=== PATIENT | female | born 1955 | race Caucasian/White ===

== ENCOUNTER 2024-05-18 08:38 | Emergency (ER) | payer MEDICARE, BC, SELFPAY ==
[2024-05-18] VITALS (7 sets, daily range): BP systolic 143–192; BP diastolic 73–99; PULSE 65–76; RESP 12–18; TEMP 36.8; O2SAT 96–98; BMI 60.5
--- NOTE | 2024-05-18 08:57 | ED_ITS ---
HPI - Arrhythmia/Palpitations General Time Seen by Provider: 08:58 Date Seen: 05/18/24 Chief Complaint: Arrhythmia/Palpitations Stated Complaint: Irregular heartrate Time Seen by Provider: 05/18/24 08:57 Source: patient, RN notes reviewed and old records reviewed Mode of arrival: ambulatory Limitations: no limitations History of Present Illness HPI narrative: This 69-year-old female is coming into the ER with concern not feeling well this morning. She woke up around 7:30 a.m., had nausea, felt shaky, felt short of breath, some substernal lower chest discomfort. She felt an irregular heartbeat that felt different than her history of atrial fibrillation. She put her heart monitor on and it told her that she was not in atrial fibrillation but did not know the rhythm. She checked her blood sugar at home as she is diabetic, thought maybe she was low but her blood sugar was 147. Last night she felt fine. She has a history of type 2 diabetes, history of atrial fibrillation. She has had 3 ablation is a for her atrial fibrillation, is chronically anticoagulated with Eliquis. Patient is on propafenone as well. She admits that she has been having problems with burning pain in her substernal chest, has been taking Tums every night. Sometimes certain foods will make her feel better other times they have no bearing on her symptoms. Patient does not have any history of ischemic cardiac disease. MD complaint: irregular heart beat Arrhythmia history: atrial fibrillation, on anti-coagulants and history of ablation Related Data Home Medications ?Medication ?Instructions ?Recorded ?Confirmed apixaban 5 mg tablet (Eliquis) 5 mg PO BID 10/07/22 05/18/24 blood sugar diagnostic (Contour #10 ea 10/07/22 04/21/23 Next Test Strips) lisinopril 20 mg tablet 40 mg PO DAILY 10/07/22 05/18/24 magnesium citrate 100 mg tablet 500 mg PO QDAY 10/07/22 05/18/24 metoprolol tartrate 25 mg tablet 25 mg PO BID 10/07/22 05/18/24 pravastatin 40 mg tablet 40 mg PO . 10/07/22 05/18/24 propafenone 150 mg tablet 150 mg PO BID 10/07/22 05/18/24 insulin glargine U-300 conc 300 20 unit subcut 04/21/23 05/18/24 unit/mL (1.5 mL) subcutaneous pen (Toujeo SoloStar U-300 Insulin) dulaglutide 1.5 mg/0.5 mL 1.5 mg subcut 05/18/24 [facility] Previous Rx's ?Medication ?Instructions ?Recorded pantoprazole 40 mg tablet,delayed 40 mg PO DAILY #14 tabs 05/18/24 release (Protonix) Allergies Allergy/AdvReac Type Severity Reaction Status Date / Time glipizide Allergy Intermediate Abdominal Verified 05/18/24 08:46 Pain latex Allergy Intermediate Rash Verified 05/18/24 08:46 metformin Allergy Intermediate Abdominal Verified 05/18/24 08:46 Pain Penicillins Allergy Intermediate Hives Verified 05/18/24 08:46 Sulfa (Sulfonamide Allergy Intermediate Rash Verified 05/18/24 08:46 Antibiotics) Review of Systems Status of ROS: Reports: 6 or more systems reviewed and unremarkable except as noted in History and below [facility] Medical History (Updated 05/18/24 @ 11:25 by Fariha Art MD) Atrial fibrillation ?I48.91 - Unspecified atrial fibrillation (ICD-10) Cellulitis ?L03.90 - Cellulitis, unspecified (ICD-10) URI (upper respiratory infection) ?J06.9 - Acute upper respiratory infection, unspecified (ICD-10) Sore throat ?J02.9 - Acute pharyngitis, unspecified (ICD-10) Social History Smoking Status: Never smoker How often do you have a drink containing alcohol: never AUDIT-C Alcohol total score: 0 Non-prescribed substance use: denies use Exam Const: Vital Signs, click to edit/add: Vital Signs - 24 hr 05/18/24 08:46 05/18/24 09:03 05/18/24 09:31 Temperature 98.2 F Pulse Rate 68 Pulse Rate [Pulse Oximeter] 76 Respiratory Rate 18 14 Blood Pressure 158/99 H Blood Pressure [Le ft Forearm] 192/91 H Pulse Oximetry 97 98 98 Oxygen Delivery Me thod Room Air 05/18/24 10:02 05/18/24 10:31 Temperature Pulse Rate 65 65 Pulse Rate [Pulse Oximeter] Respiratory Rate 16 12 Blood Pressure 147/84 H 149/73 H Blood Pressure [Le ft Forearm] Pulse Oximetry 97 96 Oxygen Delivery Me thod Cleans a 63-year-old female that is alert, interactive, no apparent distress, seen in exam room 8. She is able to speak in complete sentences, speech is normal, no hoarseness. Pupils equal round, sclera clear. Symmetrical facial function. Neck thick but no adenopathy or masses noted. Lungs are clear, good air entry, no wheezing crackles. CV regular, no murmur, normal S1-S2, no S3-S4. Do see occasional PVC on the quality assurance monitor body while I am talking to her. Abdomen is obese but soft, nontender, no organomegaly or masses noted but may be difficult due to body habitus. Lower extremities are thickened, have venous stasis pigmentary changes but no erythema or warmth. Documenting provider has reviewed patient's vital signs: yes Course Course ED Course: This patient is anticoagulated with Eliquis making thromboembolic disease like pulmonary emboli much less likely. Will confirm normal D-dimer. Do see PVCs both on her EKG and quality assurance monitor body, could be the irregular heartbeat that she is feeling is the PVCs. There certainly is no evidence of recurrent atrial fibrillation at this time. Do need to rule out ischemic cardiac disease, will be getting troponin. We are seen her about an hour and a half after onset of symptoms. Aspirin is not going to be given at this time unless a point of care troponin does come back elevated given that she is on Eliquis. It is possible that she does have GI pathology but need to rule out other more concerning and potentially life-threatening issues 1st. Will look at a portable chest x-ray as well. Full complement of appropriate labs will be obtained. Reevaluation(s) Time of Reevaluation #1: 11:16 Reevaluation #1: Reviewed normal cardiac enzymes, EKGs not showing any concerning change for active ischemia or infarct. She notes that her heartburn symptoms are actually worsening since she has been here. She has been having worsening heartburn for a while now. She states she has tried omeprazole Nexium in the past, did not feel like they helped. Did review with her that she probably should get scheduled for an EGD through her primary care provider given her ongoing symptoms. She states she has a hiatal hernia. Nonetheless, she probably should have EGD just to ensure no underlying pathology. This does not need to happen emergently today and can be scheduled through her primary. Will give her a 2 week course of Protonix to try to see if this medicine may help her. As far as the PVCs, this is likely a benign finding but if she starts having more symptoms, can talk to her hand frame surgical elastic knitter. She is on low-dose metoprolol, this could be escalated a bit higher. She is not feeling short of breath, does have chronic edema of her legs and had tried a diuretic in the past without much benefit. Do not think that this patient is in active congestive heart failure with her current symptoms. Will have her follow-up and be re-evaluated with her primary. Vital Signs Vital signs: Initial Vital Signs Temperature 98.2 F 05/18/24 08:46 Temperature Source Temporal Artery Scan 05/18/24 08:46 Pulse Rate 76 05/18/24 08:46 Respiratory Rate 18 05/18/24 08:46 Blood Pressure 192/91 H 05/18/24 08:46 Blood Pressure Mean 124 H 05/18/24 08:46 Blood Pressure Position Semi-Fowlers 05/18/24 08:46 Pulse Oximetry 97 05/18/24 08:46 Oxygen Delivery Method Room Air 05/18/24 08:46 Vital Signs Temperature 98.2 F 05/18/24 08:46 Pulse Rate 76 05/18/24 08:46 Respiratory Rate 18 05/18/24 08:46 Blood Pressure 192/91 H 05/18/24 08:46 Pulse Oximetry 97 05/18/24 08:46 Oxygen Delivery Method Room Air 05/18/24 08:46 Temperature 98.2 F 05/18/24 08:46 Pulse Rate 65 05/18/24 10:31 Respiratory Rate 12 05/18/24 10:31 Blood Pressure 149/73 H 05/18/24 10:31 Pulse Oximetry 96 05/18/24 10:31 Oxygen Delivery Method Room Air 05/18/24 08:46 MDM - Arrhythmia/Palpitations Lab Data Attestation: I reviewed the patient's lab results. Labs: Lab Results 05/18/24 05/18/24 Range/Units 09:15 10:33 WBC 5.46 (4.50-11.00) K/uL RBC 4.64 (4.00-5.20) m/uL Hgb 13.4 (12.0-16.0) gm/dL Hct 41.8 (33.0-51.0) % MCV 90 (80-100) fL MCH 29 (26-34) pg MCHC 32 (32-36) gm/dL RDW Coeff of Shruthi 13.0 (11.5-15.5) % Plt Count 198 (140-440) K/uL Neut % (Auto) 67.0 (42.0-72.0) % Lymph % (Auto) 21.8 (20-44) % [place] % (Auto) 7.3 (0.0-11.0) % Eos % (Auto) 3.5 (0.0-7.0) % Baso % (Auto) 0.2 (0.0-3.0) % Neut # (Auto) 3.66 (1.7-7.0) K/uL Lymph # (Auto) 1.19 (0.90-2.90) K/uL [place] # (Auto) 0.40 (0.00-0.90) K/UL Eos # (Auto) 0.19 (0.00-0.50) K/uL Baso # (Auto) 0.01 (0.00-0.30) K/uL Abs Immat Gran (auto) 0.01 (0.00-0.30) K/uL Imm/Tot Granulo (auto) 0.2 % D-Dimer Quant (PE/DVT) 0.43 (0.00-0.50) ug/ml VBG pH 7.375 (7.32-7.43) VBG pCO2 50 (40-50) mmHG VBG pO2 36.0 (25-47) mmHG VBG HCO3 29 H (21-28) mmol/L Sodium 136 (135-149) mmol/L Potassium 4.2 (3.6-5.1) mmol/L Chloride 103 (96-114) mmol/L Carbon Dioxide 27 (20-32) mmol/L Anion Gap 6 L (7-15) mEq/L BUN 21 (7-30) mg/dL Creatinine 0.8 (0.5-1.5) mg/dL Estimated Creat Clear 56.27 Estimated GFR 80 ml/min Glucose 165 H (60-115) mg/dL Lactate 1.4 (0.5-1.9) mmol/L Calcium 9.7 (8.4-10.6) mg/dL Magnesium 1.7 (1.5-2.6) mg/dL Total Bilirubin 0.8 (0.1-1.5) mg/dL AST 27 (12-35) U/L ALT 24 (4-35) U/L Alkaline Phosphatase 70 (40-150) U/L Troponin I < 0.01 L (0.01-0.04) ng/mL C-Reactive Protein 1.6 H (0.5-1.0) mg/dL NT-Pro-B Natriuret Pep 325 pg/mL Total Protein 7.7 (6.0-8.3) g/dL Albumin 4.3 (3.3-5.0) g/dL POC Troponin I 0.00 L 0.01 (0.01-0.04) ng/ml Imaging Data Chest x-ray: Attestation: I have reviewed the pertinent imaging results. Radiologist's impression: Patient: [facility] Facility:?[facility] Patient ID:?[id number] Site Patient ID:?[id number]. Site :?[id number] Study:?XRay-Chest PORTABLE 1 VIEW-05/18/2024 9:44:36 AM Ordering Physician:Conrad Fried Final Report: INDICATION: Chest pain. Cardiac arrhythmia. COMPARISON: 01/11/2018 TECHNIQUE: 1 view. FINDINGS: Medical Devices: None. Lung Volumes: Adequate inspiration. No significant atelectasis. Lungs: Upper lobe pulmonary venous diversion and diffuse bilateral reticular opacities consistent with interstitial edema. Pleura and Pleural spaces: No significant pleural effusion. No pneumothorax. Mediastinum: Stable cardiomediastinal silhouette. AP technique exaggerates the transverse dimension of the cardiac silhouette. Cardiomegaly is not excluded. Bony Thorax and Soft Tissues: No significant incidental findings. IMPRESSION: Findings consistent with mild congestive heart failure. Dictated by Samuel Porras MD @ 05/18/2024 9:52:20 AM (Electronic Signature) ECG Data Attestation: I personally reviewed and interpreted this ECG as follows: (Sinus rhythm with first-degree AV block, 78 beats per minute. PVCs noted. Poor R- wave progression anterior precordial leads, left anterior fascicular block and incomplete right bundle branch block.) ECG interpretation date: 05/18/24 ECG interpretation time: 09:19 Prior ECG tracings: not available for review Interpretation: 10:32 a.m. EKG was sinus rhythm with first-degree AV block. Poor R-wave progression anterior precordial leads, no significant change. Discharge Plan Discharge Clinical Impression: Chest pain due to GERD, Premature ventricular contractions (PVCs) (VPCs) Patient Disposition: Home, Self-Care Condition: Stable Instructions: GERD (Gastroesophageal Reflux Disease) (ED), Premature Ventricular Contractions (ED) Additional Instructions: Please schedule follow-up with her primary care provider within the next 1-2 weeks. Need to discuss having a screening EGD done given your ongoing heartburn symptoms. Try the Protonix and see if it is helping at all, may need longer than 2 weeks to completely evaluate this, can get more from your primary care provider. If your noticing ongoing issues with irregular heartbeat, your primary care provider can get you a quality assurance monitor body, recommend ZIO patch or similar monitor. Referral to your hand frame surgical elastic knitter can always be considered as well. Activity Level: Activity as Tolerated Prescriptions: New pantoprazole [Protonix] 40 mg tablet,delayed release (DR/EC) 40 mg PO DAILY Qty: 14 0RF No Action metoprolol tartrate 25 mg tablet 25 mg PO BID Patient Comments: TAKE ONE TABLET BY MOUTH TWICE DAILY lisinopril 20 mg tablet 40 mg PO DAILY Patient Comments: TAKE ONE TABLET BY MOUTH ONE TIME DAILY (DME) Contour Next Test Strips Strip See Rx Instructions .ROUTE .MEDSUPPLY Qty: 10 Patient Comments: USE TO TEST BLOOD SUGAR ONCE DAILY. Rx Instructions: As directed pravastatin 40 mg tablet 40 mg PO .hs Patient Comments: TAKE ONE TABLET BY MOUTH ONE TIME DAILY AT BEDTIME propafenone 150 mg tablet 150 mg PO BID Patient Comments: Take 1 Tablet (150 mg) by mouth twice daily 12 hours apart. Eliquis 5 mg tablet 5 mg PO BID Patient Comments: TAKE ONE TABLET BY MOUTH TWICE DAILY magnesium citrate 100 mg tablet 500 mg PO QDAY Hold Instructions: patient not taking at present insulin glargine U-300 conc [Toujeo SoloStar U-300 Insulin] 300 unit/mL (1.5 mL) insulin pen 20 unit subcut HS Trulicity 1.5 mg/0.5 mL pen injector 1.5 mg subcut Follow Up/Referrals: Ruthy Stewart [Referring] - Stand Alone Forms: MyHealth Info Instructions
--- NOTE | 2024-05-18 09:03 | CRLHL7_ITS ---
For Patients: As a result of the Century Cures Act, medical imaging exams and procedure reports are released immediately into your electronic medical record. You may view this report before your referring provider. If you have questions, please contact your health care provider. INDICATION: Chest pain. Cardiac arrhythmia. COMPARISON: 01/11/2018 TECHNIQUE: 1 view. FINDINGS: Medical Devices: None. Lung Volumes: Adequate inspiration. No significant atelectasis. Lungs: Upper lobe pulmonary venous diversion and diffuse bilateral reticular opacities consistent with interstitial edema. Pleura and Pleural spaces: No significant pleural effusion. No pneumothorax. Mediastinum: Stable cardiomediastinal silhouette. AP technique exaggerates the transverse dimension of the cardiac silhouette. Cardiomegaly is not excluded. Bony Thorax and Soft Tissues: No significant incidental findings. IMPRESSION: Findings consistent with mild congestive heart failure. Dictated by Samuel Porras MD @ 05/18/2024 9:52:20 AM (Electronically Signed)
[2024-05-18 09:26] LABS: Basophils Absolute Auto 0.01 K/uL (0.00-0.30); Basophils Percent Auto 0.2 % (0.0-3.0); Eosinophils Absolute Auto 0.19 K/uL (0.00-0.50); Eosinophils Percent Auto 3.5 % (0.0-7.0); Hematocrit 41.8 % (33.0-51.0); Hemoglobin* 13.4 gm/dL (12.0-16.0); Immature Granulocytes Abs Auto 0.01 K/uL (0.00-0.30); Immature Granulocytes Pct Auto 0.2 %; Lymphocytes Absolute Auto 1.19 K/uL (0.90-2.90); Lymphocytes Percent Auto 21.8 % (20-44); Mean Corpuscular HGB Conc 32 gm/dL (32-36); Mean Corpuscular Hemoglobin 29 pg (26-34); Mean Corpuscular Volume 90 fL (80-100); Monocytes Percent Auto 7.3 % (0.0-11.0); Neutrophils Absolute Auto 3.66 K/uL (1.7-7.0); Platelet Count* 198 K/uL (140-440); Red Blood Count 4.64 m/uL (4.00-5.20); White Blood Count* 5.46 K/uL (4.50-11.00)
[2024-05-18 09:28] LABS: HCO3 VBG 29 mmol/L (21-28); Lactate* 1.4 mmol/L (0.5-1.9); PCO2 VBG 50 mmHG (40-50); pH VBG 7.375 (7.32-7.43)
[2024-05-18 09:31] LABS: Slide Review Reflex No
[2024-05-18 09:43] LABS: Albumin* 4.3 g/dL (3.3-5.0); Chloride* 103 mmol/L (96-114); Sodium* 136 mmol/L (135-149)
[2024-05-18 09:44] LABS: Potassium* 4.2 mmol/L (3.6-5.1)
[2024-05-18 09:47] LABS: Alanine Aminotransferase* 24 U/L (4-35); Alkaline Phosphatase* 70 U/L (40-150); Anion Gap 6 mEq/L (7-15); Aspartate Amino Transferase* 27 U/L (12-35); Bilirubin Total* 0.8 mg/dL (0.1-1.5); Blood Urea Nitrogen* 21 mg/dL (7-30); Carbon Dioxide* 27 mmol/L (20-32); Creatinine* 0.8 mg/dL (0.5-1.5); Est. Creatinine Clearance* 56.27; Estimated Glomerular Filt Rate 80 ml/min; Glucose* 165 mg/dL (60-115); Total Protein* 7.7 g/dL (6.0-8.3)
[2024-05-18 09:48] LABS: Calcium* 9.7 mg/dL (8.4-10.6); D Dimer Quantitative* 0.43 ug/ml (0.00-0.50); Magnesium* 1.7 mg/dL (1.5-2.6)
[2024-05-18 09:50] LABS: C Reactive Protein* 1.6 mg/dL (0.5-1.0)
[2024-05-18 10:28] LABS: NT Pro B Type NatriureticPept* 325 pg/mL; Troponin I* < 0.01 ng/mL (0.01-0.04)
[2024-05-18 10:52] LABS: Troponin, Point-of-Care* 0.01 ng/ml (0.01-0.04)
== END 2024-05-18 11:43 | disposition home or self-care (01) ==
PROVIDERS: Emergency Provider Family Medicine; PCP Physician Assistant
DX: K21.9 Gastro-esophageal reflux disease without esophagitis (principal); R07.89 Other chest pain; I49.3 Ventricular premature depolarization
CPT/HCPCS: 36415; 71045; 80053; 82803; 83605; 83735; 83880; 84484; 85025; 85379; 86140; 93005; 94761; 99284; 99285

== ENCOUNTER 2025-01-18 14:03 | Emergency (ER) | payer MEDICARE, BC, SELFPAY ==
[2025-01-18] VITALS (8 sets, daily range): BP systolic 143–179; BP diastolic 75–79; PULSE 68–76; RESP 13–22; TEMP 36.8; O2SAT 96–99; BMI 56.1
--- OUTSIDE RECORDS SUMMARY | 2025-01-18 14:06 | XMS_ITS | Data Portability ---
Author Organization [place] [facility], [employer] - [employer] [facility] Address [address] [place] [address] Assessment Encounter Date Assessment Date Assessment LastModified by Organization Details LastModified Time 10/24/2024 10/24/2024 ASSESSMENT: Patient is a good candidate for conservative care and the prognosis is for a favorable outcome that achieves the patients' goals. We discussed etiology, activity modifications, home care, and other treatment options. Initially, it is recommended that the patient receive in-office treatment 1 times per week for 8 weeks at which time a re-evaluation will be performed to determine an appropriate change in plan. Initially, treatment will focus on joint manipulation to restore range of motion and reduce pain. We will slowly progress to therapeutic exercises and activities to improve function, strength, and stability may also be used as warranted. If the patient is not responding as expected, more invasive procedures will be discussed along with a referral. All considerations above were discussed with the patient and questions answered to satisfaction. If the patient should have any additional questions, or should the condition evolve or worsen, the patient should not hesitate to contact our office. [email or web address] Not available 10/25/2024 16:41:44 Plan of Treatment Reminders Order Date Submit Date Provider Last Modified By Organization Details Last Modified Time Details Appointments None record ed. Lab None record ed. Referral None record ed. Procedures None record ed. Surgeries None record ed. Imaging None record ed. Medication Orders None record ed. Patient TargetsNo targets recorded. Patient InstructionsNo instructions recorded. Reason for Referral None Reported. Problems Name Problem SNOMED Code Status Onset Date Resolution Date Notes Provider Name and Address Organization Details Recorded Time Somatic dysfunction of pelvic region 684701247 Active 2024 Roland Jeong DC [address] [facility] [address], [place], [address], [place] [facility] 10:36:51 Neck pain 10152505 Active 2024 Tani Rubalcava DC [address], [place], [address], [place] [facility] 5 16:41:45 Cervical segmental dysfunction 465454417 Active 2024 Tani Rubalcava DC [address] [facility] [address], [place], [address], [place] [facility] 16:41:45 Lumbar segmental dysfunction 676796810 Active 2024 Tani Rubalcava DC [address] [address] [facility] [address], [place], [address], [place] [facility] 16:41:45 Thoracic segmental dysfunction 331477299 Active 2024 Tani Rubalcava DC [address] [facility] [address], [place], [address], [place] [facility] 16:41:45 Lesion of lumbar spine 493195260 Active 2024 Tani Rubalcava DC [address] [facility] [address], [place], [address], [place] [facility] 16:41:45 Problem Notes None recorded. Procedures Surgical History Date Name Laterality Status Provider Name and Address Organization Details Recorded Time 5 45208: Spinal manipulation , 3 to 4 regions completed Roland Jeong DC [address] [facility] [address], [place], [address], [place] [facility] 12/20/2024 16:58:33 5 [address]: Spinal manipulation , 3 to 4 regions completed Roland Jeong DC [address] [facility] [address], [place], [address], [place] [facility] 12/18/2024 10:36:34 5 [address]: Spinal manipulation , 3 to 4 regions completed [place], [place] [address], [place], [address], [facility] 10/25/2024 16:42:10 Imaging Results None recorded. Procedure Notes None recorded. Medical Equipment None Reported. Medications Name Sig Start Date Stop Date Status Note LastModified by Organization Details LastModified Time poct strep a positive Administere d by pharmacist* active Not Available Not Available Not Available propafenone 150 mg tablet TAKE 1 TABLET BY MOUTH EVERY 12 HOURS active Not Available Not Available No t Available pravastatin 40 mg tablet TAKE ONE TABLET BY MOUTH ONE TIME DAILY AT BEDTIME* active Not Available Not Available Not Available sucralfate 1 gram tablet TAKE ONE TABLET BY MOUTH THREE TIMES DAILY BEFORE MEALS FOR 14 DAYS* active Not Available Not Available No t Available amlodipine 5 mg tablet TAKE ONE TABLET BY MOUTH ONE TIME DAILY* active Not Available Not Available Not Available terbinafine HCl 250 mg tablet Take 1 Tablet (250 mg) by mouth once daily.* active Not Available Not Available No t Available cephalexin 500 mg capsule TAKE TWO CAPSULES BY MOUTH TWICE DAILY* active Not Available Not Available No t Available pantoprazole 40 mg tablet,delay ed release TAKE ONE TABLET BY MOUTH ONE TIME DAILY* active Not Available Not Available Not Available lisinopril 40 mg tablet TAKE ONE TABLET BY MOUTH ONE TIME DAILY* active Not Available Not Available Not Available metoprolol tartrate 25 mg tablet TAKE ONE TABLET BY MOUTH TWICE DAILY* active Not Available Not Available No t Available Contour Next Test Strips USE TO TEST BLOOD SUGAR ONCE DAILY.* active Not Available Not Available No t Available Eliquis 5 mg tablet TAKE ONE TABLET BY MOUTH TWICE DAILY* active Not Available Not Available No t Available Trulicity 1.5 mg/0.5 mL subcutaneous pen injector Inject 1.5 mg by subcutaneou s route once weekly.* active Not Available Not Available No t Available Trulicity 0.75 mg/0.5 mL subcutaneous pen injector Inject 0.75 mg subcutaneou sly once weekly.* active Not Available Not Available No t Available insulin glargine (U-300) conc. 300 unit/mL (1.5 mL) subcutaneous pen Inject 31 units subcutaneou s before bedtime. Increase by 2 units every 4 days until fasting blood sugars are 100-120. Max units of 60 daily.* active Not Available Not Available No t Available BD Aparna 2nd Gen Pen Needle 32 gauge x 5/32 use to administer insulin at home.* active Not Available Not Available No t Available Trulicity 3 mg/0.5 mL subcutaneous pen injector Inject 3 mg subcutaneou s once weekly.* active Not Available Not Available No t Available Mounjaro 7.5 mg/0.5 mL subcutaneous pen injector active Not Available Not Available Not Available Mounjaro 5 mg/0.5 mL subcutaneous pen injector Inject 5 mg BY subcutaneou s ROUTE once weekly.* active Not Available Not Available No t Available Mounjaro 2.5 mg/0.5 mL subcutaneous pen injector Inject 2.5 mg BY subcutaneou s ROUTE once weekly.* active Not Available Not Available No t Available Vitals None Recorded Social History None recorded. Functional Status None recorded. Mental Status None recorded. Family History Nothing Reported. Medical History No medical history recorded. Gynecological HistoryNo gynecological history recorded. Obstetrics History GPAL:G 0 P 0 0 0 0 Past Encounters Encounter ID Performer Location Encounter Start Date Encounter Closed Date Diagnosis/Indication Diagnosis SNOMED-CT Code Diagnosis ICD10 Code Diagnosis Note [id number] Tani Rubalcava DC [facility] [address] [place] [address] 10/24/2024 11:29:42 10/25/2024 16:47:22 Cervical segmental dysfunction 137117417 M99.01 Neck pain 28754276 M54.2 Thoracic s egmental dysfunction 756257779 M99.02 Lumbar seg mental dysfunction 984409726 M99.03 Lesion of lumbar spine 374110850 M99.01 [id number] Roland Jeong DC [facility] [address] [place] [address] 12/18/2024 09:57:38 12/18/2024 10:48:22 Cervical segmental dysfunction 804988476 M99.01 Neck pain 69161940 M54.2 Thoracic s egmental dysfunction 102498828 M99.02 Somatic dy sfunction of pelvic region 436769667 M99.05 [id number] Roland Jeong DC [facility] [address] [place] [address] 12/20/2024 15:46:37 12/20/2024 17:31:38 Cervical segmental dysfunction 671360462 M99.01 Thoracic s egmental dysfunction 945982406 M99.02 Neck pain 74977950 M54.2 Somatic dy sfunction of pelvic region 461058375 M99.05 Health Concerns Section Related Observation LastModified by Organization Detai ls LastModified Time None Recorded Concern Status LastModified by Organization Details LastModified Time None Recorded Advance Directives Directive None Recorded Payers Encounter Date Sequence Insurance Name Policy Number Policy Serrano Covered Member ID Serrano Member ID Guarantor Name 10/24/2024 1 [place] [employer] [facility] Kendal Amber Mertesdorf [id number] Kendal Mertesdorf 10/24/2024 2 [place] [id number] Kendal Amber Mertesdorf [id number] Kendal Mertesdorf 12/18/2024 1 [place] [employer] [facility] Kendal M Mertesdorf [id number] Kendal Mertes[place]f 12/18/2024 2 [place] [id number] Kendal M Mertesdorf [id number] Kendal Mertes[place]f 12/20/2024 1 [place] [employer] [facility] Kendal M Mertes[place]f [id number] 33 Kendal Mertes[place]f 12/20/2024 2 [place] [id number] Kendal Amber M[place]f [id number] [facility] Notes Date Note Type Note Provider Name and Address Organization Details Recorded Time 10/24/2024 text/html HPI - Cervical SpineReported bypatient.Location: left Quality:aching Severity:moderate Duration:2 weeks Timing:gradual Alleviating Factors:ice Aggravating Factors:sitting Associated Symptoms:no numbness/tingling Tani Rubalcava DC [address], [place], [address], [facility] 10/25/2024 16:42:41 12/18/2024 text/html HPI - Cervical SpineReported bypatient.Location: left Quality:aching Severity:moderate Duration:2 weeks Timing:gradual Alleviating Factors:ice Aggravating Factors:sitting Associated Symptoms:no numbness/tingling Roland Billy Jeong DC [address], [place], [address], [facility] 12/18/2024 10:37:07 12/20/2024 text/html HPI - Cervical SpineReported bypatient.Location: left Quality:aching Severity:moderate Duration:2 weeks Timing:gradual Alleviating Factors:ice Aggravating Factors:sitting Associated Symptoms:no numbness/tingling Roland Jeong DC [address], [place], [address], [facility] 12/20/2024 17:14:24 OBGyn Episode No OBEpisode recorded.
--- OUTSIDE RECORDS SUMMARY | 2025-01-18 14:07 | XMS_ITS | Clinical Summary ---
Author Organization [facility] Address [address] [place] [address] Care Team Providers Care Biometrics Head Name Role Phone Vianca Thurman Primary Care Provider [phone]- [phone] Laurie Alicea Unavailable Prasad Castro MD Unavailable [phone] Allergies Active Allergy Reactions Criticality Noted Date Comments Adhesive Rash Medium 04/11/2014 Latex Itching,Edema High 08/31/2009 Metformin Diarrhea High 09/19/2009 Penicillins Rash Medium 05/10/2016 sunburn appearance on lower extremities Sulfa (Sulfonamide Antibiotics) Rash High 08/18/2023 Blood sugar dropped Medications CALCIUM CARBONATE (TUMS 500 ORAL) Take by mouth once daily if needed. Active blood-glucose meterIndications:Diabet es mellitus without complication (HC) Dispense meter, test strips, lancets covered by pt ins. E11.9 NIDDM type II - Test 1 time/day 1 Device 018 Active lancetsIndications:Diab etes mellitus without complication (HC) Please give what is covered by insurance! Test 1 times per day. 100 Each 023 Active Microlet LancetIndications:Diabe radha mellitus without complication (HC) Dispense item covered by pt ins. E11.9 NIDDM type II - Test 1 time/day 100 Each 023 Active CPAPIndications:CARLOS (obstructive sleep apnea) resmed CPAP machine for home use at pressure 9 cmw, CPAP mask- mask of choice, fit to comfort one per 3 months 1 Each 024 Active apixaban (Eliquis) 5 mg tabletIndications:Persi stent atrial fibrillation (HC) Take 1 Tablet (5 mg) by mouth two times daily. 180 Tablet 3 024 Active metoprolol tartrate (LOPRESSOR) 25 mg tabletIndications:H/O radiofrequency ablation for complex left atrial arrhythmia Take 1 Tablet (25 mg) by mouth two times daily. 180 Tablet 3 024 Active propafenone (RYTHMOL) 150 mg tabletIndications:Persi stent atrial fibrillation (HC) Take 1 Tablet (150 mg) by mouth every 12 hours. 180 Tablet 3 024 Active insulin glargine U-300 (Toujeo SoloStar U-300 Insulin) 300 unit/mL (1.5 mL) penIndications:type 2 diabetes mellitus Inject 20 units subcutaneous before bedtime. 6 mL 1 024 Active lisinopriL (PRINIVIL; ZESTRIL) 40 mg tabletIndications:Essen tial hypertension Take 1 Tablet (40 mg) by mouth once daily. 90 Tablet 3 024 Active pravastatin (PRAVACHOL) 40 mg tabletIndications:Pure hypercholesterolemia Take 1 Tablet (40 mg) by mouth at bedtime. 90 Tablet 3 024 Active amLODIPine (Norvasc) 5 mg tabletIndications:Essen tial hypertension Take 1 Tablet (5 mg) by mouth once daily. 90 Tablet 3 024 Active Walker - 4 wheelsIndications:At high risk for falls,Unsteady gait For home use. Length of need: 99 Bariatric walker 1 Each 024 Active tirzepatide (Mounjaro) 7.5 mg/0.5 mL penIndications:type 2 diabetes mellitus Inject 7.5 mg subcutaneous once weekly. 6 mL 3 09/25/20 24 2:16 PM SCOURING PADS SUPERVISOR 024 Active pen needle (BD Aparna 2nd Gen Pen Needle) 32 gauge x 5/32 (disposable insulin pen needle)Indications:Diab etes mellitus without complication (HC) use to administer insulin at home. 100 Each 3 025 Active blood sugar diagnostic (Contour Next Test Strips) stripIndications:Diabet es mellitus without complication (HC) USE TO TEST BLOOD SUGAR ONCE DAILY. 100 Each 3 025 Active clotrimazole-betamethas one 1%-0.05% creamIndications:Rash, skin Apply topically to affected area(s) 2 times daily. 45 g 1 025 Active tirzepatide (Mounjaro) 5 mg/0.5 mL penIndications:type 2 diabetes mellitus Inject 5 mg subcutaneous once weekly. 2 mL 3 024 2024 Discontin ued(Dupli matt therapy (E-cancel not sent)) Active Problems Problem Noted Date Diagnosed Date MIRYAM positive 09/17/2024 Type 2 diabetes mellitus wit h diabetic cataract, with long-term current use of insulin 03/09/2024 Hypomagnesemia 08/25/2022 COVID-19 virus infection 05/07/2022 Overview (05/07/2022): April 2022 - treated with bebtelovimab (monoclonal antibody) on 05/03/22. Major depressive disorder, recurrent episode, mo derate 04/29/2021 Class 3 severe obesity due t o excess calories with serious comorbidity and body mass index (BMI) of 50.0 to 59.9 in adult 04/29/2021 Paroxysmal atrial fibrillation 11/26/2015 Overview (01/06/2018): - status post ablation in 2012 and 2015 - history of rate related left bundle or left bundle associated with flecainide and she did not tolerate diltiazem very well - Propafenone started 08/18/2017 150 mg PO BID *recurrent afib 09/15/2017. Propafenone increased to 150 mg TID. 09/16/2017 s/p DCCV - recurrent afib 11/15/2017. Propafenone increased to 225 mg PO TID. s/p DCCV 11/17/2017 *s/p ablation 01/06/2018. Propafenone decreased back to 150 mg PO TID Depression 01/09/2015 Chest pain 05/05/2013 Ascending aorta dilatation 05/05/2013 Postoperative pain 07/08/2012 Hx of pulmonary embolus 06/09/2012 Overview (06/09/2012): This was following hysterectomy when she was on estrogen Morbid Obesity. Hypertension (HTN) Pure hypercholesterolemia Esophageal reflux Diabetes Mellitus, Type II Overview (12/11/2015): Adult onset CARLOS 10/28/2006 AHI-14 Overview (04/23/2014): On CPAP Resolved Problems Problem Noted Date Diagnosed Date Resolved Date Anticoagulation monitoring, DOAC 10/25/2019 03/18/2023 Anticoagulation monitoring, INR range 2-3 04/26/2014 08/06/2019 Chronic anticoagulation 04/24/2014 02/0 01/2021 Choledocholithiasis 07/08/2012 04/23/20 14 Acute cholecystitis 06/09/2012 04/23/20 14 Other chest pain 06/09/2012 Atrial fibrillation/Flutter 08/09/2019 Overview (12/03/2015): -paroxysmal atrial fibrillation - treated with flecainide -Fall 2011 increased PAF events - Flecainide dose increased to 150mg BID (QRS 126ms) -05/08/2013 persistent, symptomatic afib - changed to Sotalol 80mg BID -05/10/2013 DCCV, early recurrent afib -05/21/2013 Tikosyn admission - 05/22/2013 Tikosyn discontinued due to NSVT -05/24/2013 Amiodarone load (oral) with plan for DCCV 05/28/2013 and future ablation -08/09/2013 Atrial fibrillation ablation procedure -04/10/2014 recurrent persistent atrial fibrillation *04/11/2014 cardioversion and start of Flecainide 100mg BID -01/15/2015 atypical atrial flutter on Flecainide - flecainide discontinued -01/24/2015 cardioversion, started on Sotalol -S/P complex ablation on 12/02/2015 Encounters Date Type Department Care Team Description 12/21/2024 10:40 AM SCOURING PADS SUPERVISOR Office Visit [facility] [address] [place] [address] Alfred Griffin MD Consult (pulm hypertension found incidentally on imaging; referred to rheum for positive MIRYAM; rheum heard rattling in lungs and recommended work up with pulm; denies dyspnea and respiratory systems, post nasal drainage but no productive cough; had PFTS in August) 12/21/2024 Travel 12/17/2024 Travel 12/17/[address] [address] Vianca Thurman PA Refill Request (Clotrimazole-betameth asone) 12/12/[address] [address] Vianca Thurman PA Prior Authorization (tirzepatide (Mounjaro) 7.5 mg/0.5 mL pen (Approved 11/12/2024-12/12/2025) ) 12/11/[address] [address] Ruthy Stewart DO Refill Request (Bd Aparna 2nd Gen Pen Needle, Contour Next Test Strips) 10/24/2024 Travel from Last 3 Months Immunizations Immunization Administration Dates Next Due COVID-19 vaccine (Moderna 100mcg/0.5mL) MEHRAN NOGUEIRA 12/23/2020 Hepatitis B (Adult) 07/04/2015,04/20/2012,2011 Influenza A (H1N1), Inactivated 09/17/2009,08/17 Influenza RIV4 (Age 18+ Year s) PRESERV FREE 06/15/2018 Influenza, High-dose Inactivated 06/27/2024 Influenza, High-dose Quadriv alent Inactivated 06/27/2023,07/15/2022,07/17/2021 Influenza, IIV3 (Age >=3 years) 08/06/20 13,08/11/2012,08/12/2011,07/22,06/17/2009 Influenza, IIV4 08/30/2017, 6,07/04/2015,08/06 Influenza, IIV4 (=>6mos) MDV 07/06/2019,06/16/20 18 Influenza, IIV4 (Age 6-35 Mos) 07/01/2020,2018 Pneumococcal Conj 20-valent (Prevnar 20) 08/13/2022 Pneumococcal Poly,23-Valent (Pneumovax) 07/23/2009,06/06/1999,02/23/1999 Pneumococcal conj 13-Valent (Prevnar 13) 09/01/2017 RSV, Recombinant ADJ Reconst ituted (Arexvy 120MCG/0.5mL) 06/27/2023 Td (Age >=7 Years) 09/01/2017,06/06/1999, 999 Tdap 07/03/2007 Tuberculin (PPD) 02/20/2008 Zoster (Shingrix-RZV, recombinant) 09/19/2018, Family History Medical History Relation Name Comments Good Health Brother 5 Good Health Daughter 2 [place]. Good Health Daughter 3 [place]. Blood Disease Father Leukemia. Dece ased. Cancer-breast Maternal Aunt Other Mother Alive at age 91 in 2014. [facility] [place]. Dementia./Possible Parkinson's Good Health Sister 4 Good Health Sister 5 Good Health Son 2 [place]. Cancer-ovarian No Family History Relation Name Status Comments Brother 1 Alive Brother 2 Alive Gout. Brother 3 Alive Gout. Brother 4 Alive Brother 5 Daughter 1 Alive Daughter 2 Daughter 3 Father (Age 56) Leukemia. . Maternal Aunt Mother Sister 1 Alive Sister 2 Alive Sister 3 Alive Sister 4 Sister 5 Son 1 Alive Son 2 Social History Tobacco Use Types Packs/Day Years Used Date Smoking Tobacco: Former Cigarettes 1 12 0 01/10/1973 - 01/10/1985 Smokeless Tobacco: Never Tobacco Cessation:Counseling Given: Not Answered Comments:Quit around age [age] years old. Alcohol Use Standard Drinks/Week Comments Not Currently 0 (1 standard drink = 0.6 oz pure alcohol) occasionally wine, beer or liquor PHQ-2 Answer Date Recorded PHQ-2 TOTAL SCORE 2 06/28/2024 Social Connections Answer Date Recorded Do you often feel lonely or isolated from those around you? 0 04/20/2024 Financial Resource Strain Answer Date R ecorded Difficulty of Paying Living Expenses 3 04/20/2024 Difficulty of Paying Living Expenses Not on file 04/20/2024 Food Insecurity Answer Date Recorded Do you worry your food will run out before you are able to buy more? 1 04/20/2024 Transportation Needs Answer Date Record ed Does lack of transportation keep you from medica l appointments? 1 04/20/2024 Does lack of transportation keep you from work, meetings or getting things that you need? 1 04/20/2024 Housing Stability Answer Date Recorded What is your housing situation today? 1 04/20/2024 Utilities Answer Date Recorded Do you have trouble paying f or utilities (for example, heat, electricity, water, phone)? 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 on file Not on file Not on file Obstetrics History Para Term AB IAB SAB Ectopic Multiple Livin g Live Births 2 2 2 2 Date Outcome GA Total Labor Labor/2nd/3rd Weight Sex Type Anes PTL Shirley A1 A5 Name Clin Term Term Last Filed Vital Signs Vital Sign Reading Time Taken Comments Blood Pressure 118/72 12/21/2024 10:21 AM SCOURING PADS SUPERVISOR Pulse 72 12/21/2024 10:21 AM SCOURING PADS SUPERVISOR Temperature 36.6 C (97.9 F) 05/03/2022 1:44 PM CDT Respiratory Rate 16 08/13/2022 8:55 AM CDT Oxygen Saturation 98% 12/21/2024 10:21 AM SCOURING PADS SUPERVISOR Inhaled Oxygen Concentration - - Weight 170.1 kg (375 lb) 12/21/2024 10:21 AM SCOURING PADS SUPERVISOR Height 175.3 cm (5' 9) 12/21/2024 10:21 AM SCOURING PADS SUPERVISOR Body Mass Index 55.38 12/21/2024 10:21 AM SCOURING PADS SUPERVISOR Plan of Treatment Upcoming Encounters Date Type Department Care Team (Late st Contact Info) Description 02/25/2025 1:30 PM CDT Orders Only [facility] [address] [place] [address] [place] 03/13/2025 10:15 AM CDT Orders Only [facility] [address] [place] [address] [place] 03/18/2025 9:30 AM CDT Office Visit [facility] [address] [place] [address] [place] [address] [place] [address] 03/19/2025 10:00 AM CDT Ancillary Procedure [facility] [address] [place] [address] 03/19/2025 11:30 AM CDT Office Visit [facility] [address] [facility] [address] [place] [address] Orion Stapleton MD [address] [place] [address] 03/20/2025 10:00 AM CDT Office Visit [facility] [address] [place] [address] Laurie Alicea MBBS [address] [place] [address] 04/04/2025 1:30 PM CDT Office Visit [facility] [address] [place] [address] Kyle Tobias MD [address] [place] [address] Health Maintenance Due Date Last Done Comments Mammogram for age 45-75 08/16/2024 08/16/20, 06/08/2022, 04/27/2021, Additional history exists COVID-19 vaccine series (2023- season) 2025 07/06/2024, 03/29/2024, 07/27/2023, Additional history exists Medicare Wellness for age 65+ 06/29/2025 06/28/2024, 08/05/2021 Depression screening for age 12+ 07/03/2025 07/03/2024, 06/28/2024, 06/28/2024, Additional history exists BMI (ht and wt on same day) for age 18+ 12/21/2025 12/21/2024, 09/20/2024, 09/17/2024, Additional history exists Fecal testing sDNA-FIT ([place] guard) for age 45-75 07/16/2027 07/16/2024 Tetanus booster 09/01/2027 09/01/2017, 06/17, 06/06/1999, Additional history exists Lipids for age 45-75 03/07/2029 03/07/2024, 03/22/2023, 01/18/2022, Additional history exists Tdap Completed 07/03/2007 Zoster (shingles) series for age 50+ Completed 09/19/2018, 06/16/2018 Pneumococcal series for age 50+ Completed 08/13/2022, 09/01/2017, 07/23/2009, Additional history exists RSV vaccine for adults or Completed 06/27/2023 Influenza Vaccine Completed 06/27/2024, , 07/06/2019, Additional history exists DEXA/DXA scan for age 65+ Completed 07/03/2024 Hepatitis C screening for ag e 18-79 Completed 08/15/2024, 04/27/2021 Procedures Procedure Name Priority Date/Time Associated Diagnosis Comments AMB SPIROMETRY WO BRONCHODILATOR Routine 12/21/2024 10:40 AM SCOURING PADS SUPERVISOR MIRYAM positive Pulmonary hypertension (HC) Abnormal PFTs SCAN-PULMONARY FUNCTION TEST 12/21/2024 12:00 AM SCOURING PADS SUPERVISOR HEMOGLOBIN A1C Routine 10/24/2024 1:52 PM SCOURING PADS SUPERVISOR Diabetes mellitus without complication (HC) ANTI HCV Routine 08/15/2024 11:23 AM CDT MIRYAM positive SDNA-FIT EXTERNAL (COLOGUARD) Routine 07/16/2024 9:52 AM CDT Screening for malignant neoplasm of colon XR DXA BONE DENSITY 2 SITES AXIAL Routine 07/03/2024 1:47 PM CDT Post-menopausal LIPID PANEL W REFLEX MEASURED LDL Routine 03/07/2024 7:00 AM CDT Diabetes Mellitus, Type II XR MAMMO JOSE BILAT SCREEN Routine 08/16/2023 8:23 AM CDT Visit for screening mammogram from Last 3 Months or Most Recently Relevant to Health Maintenance Results * AMB SPIROMETRY WO BRONCHODILATOR (12/21/2024 10:40 AM SCOURING PADS SUPERVISOR) Narrative Alfred Griffin MD - 12/21/2024 10:40 AM SCOURING PADS SUPERVISOR Alfred Griffin MD 12/21/2024 11:04 AM Pulmonary Function Test Interpretation [facility] Ordering Provider: Prasad Castro* Reason for Study: (R94.2) Abnormal PFTs (primary encounter diagnosis) (R76.8) MIRYAM positive (I27.20) Pulmonary hypertension (HC) Date of study: 12/21/2024 SPIROMETRY Normal. Alfred Griffin MD Interventional Pulmonology [facility] Pager: [phone] us Alfred Griffin MD NURSING ORD Final Result * SCAN-PULMONARY FUNCTION TEST (12/21/2024 12:00 AM SCOURING PADS SUPERVISOR) us Scanner OTHER Final Result * (ABNORMAL) HEMOGLOBIN A1C (10/24/2024 1:52 PM SCOURING PADS SUPERVISOR) HEMOGLOBIN A1C 7.3(H) <5.7 % of total Hgb [facility] Comment: For someone without known diabetes, a hemoglobin A1c value of 6.5% or greater indicates that they may have diabetes and this should be confirmed with a follow-up test. For someone with known diabetes, a value <7% indicates that their diabetes is well controlled and a value greater than or equal to 7% indicates suboptimal control. A1c targets should be individualized based on duration of diabetes, age, comorbid conditions, and other considerations. Currently, no consensus exists regarding use of hemoglobin A1c for diagnosis of diabetes for children. Blood BLOOD SPECIMEN / Unknown 10/24/2024 1:52 PM SCOURING PADS SUPERVISOR 10/24/2024 1:52 PM SCOURING PADS SUPERVISOR Vianca HURLEY CHEMISTRY Final Resu lt Performing Organization Address [facility] Co de Phone Number [facility] [address] [place] [address], [facility] [address] [place] [address] * ANTI HCV (08/15/2024 11:23 AM CDT) Pathologist [facility] HEPATITIS C ANTIBODY NON-REACTI VE NON-REACT PRINCE [facility] Comment: HCV antibody was non-reactive. There is no laboratory evidence of HCV infection. In most cases, no further action is required. However, if recent HCV exposure is suspected, a test for HCV RNA (test code 37958) is suggested. For additional information please refer to http://education.[employer]/faq/UCP06o2 (This link is being provided for informational/ educational purposes only.) Blood BLOOD SPECIMEN / Unknown 08/15/2024 11:23 AM CDT 08/15/2024 11:23 AM CDT Prasad Castro MD SEND OUTS Fin al Result Performing Organization Address [facility] Co de Phone Number [facility] [address] [place] [address], [facility] [address] [place] [address] * SDNA-FIT EXTERNAL (COLOGUARD) (07/16/2024 9:52 AM CDT) Pathologist [facility] NONINV COLON CA DNA+OCC BLD SCRN STL-IMP Negative Negative 07/20/2024 10:27 AM CDT [facility] (CLIA #:[id number]) Comment: NEGATIVE TEST RESULT. A negative Cologuard result indicates a low likelihood that a colorectal cancer (CRC) or advanced adenoma (adenomatous polyps with more advanced pre-malignant features) is present. The chance that a person with a negative Cologuard test has a colorectal cancer is less than 1 in 1500 (negative predictive value >99.9%) or has an advanced adenoma is less than 5.3% (negative predictive value 94.7%). These data are based on a prospective cross-sectional study of 10,000 individuals at average risk for colorectal cancer who were screened with both Cologuard and colonoscopy. (Ivett Hirsch et al, N Engl J Med 2014;370(14):0706-5297) The normal value (reference range) for this assay is negative. COLOGUARD RE-SCREENING RECOMMENDATION: Periodic colorectal cancer screening is an important part of preventive healthcare for asymptomatic individuals at average risk for colorectal cancer. Following a negative Cologuard result, the [place] Cancer Society and U.S. Multi-Society Task Force screening guidelines recommend a Cologuard re-screening interval of 3 years. References: [place] Cancer Society Guideline for Colorectal Cancer Screening: https://www.cancer.org/cancer/qpibg-cgynew-axzsvx/vytbjalsu-gyvxvynxb-ndeywcc/ac s-rec ommendations.html.; Pato BUENROSTRO, Arlene SOLORZANO, Chikis AlvarezK, Colorectal Cancer Screening: Recommendations for Physicians and Patients from the U.S. Multi-Society Task Force on Colorectal Cancer Screening , Am J Gastroenterology 2017; 112:5557-4537. TEST DESCRIPTION: Composite algorithmic analysis of stool DNA-biomarkers with hemoglobin immunoassay. Quantitative values of individual biomarkers are not reportable and are not associated with individual biomarker result reference ranges. Cologuard is intended for colorectal cancer screening of adults of either sex, 45 years or older, who are at average-risk for colorectal cancer (CRC). Cologuard has been approved for use by the U.S. FDA. The performance of Cologuard was established in a cross sectional study of average-risk adults aged 50-84. Cologuard performance in patients ages 45 to 49 years was estimated by sub-group analysis of near-age groups. Colonoscopies performed for a positive result may find as the most clinically significant lesion: colorectal cancer [4.0%], advanced adenoma (including sessile serrated polyps greater than or equal to 1cm diameter) [20%] or non- advanced adenoma [31%]; or no colorectal neoplasia [45%]. These estimates are derived from a prospective cross-sectional screening study of 10,000 individuals at average risk for colorectal cancer who were screened with both Cologuard and colonoscopy. (Ivett Hirsch et al, N Engl J Med 2014;370(14):4608-6543.) Cologuard may produce a false negative or false positive result (no colorectal cancer or precancerous polyp present at colonoscopy follow up). A negative Cologuard test result does not guarantee the absence of CRC or advanced adenoma (pre-cancer). The current Cologuard screening interval is every 3 years. ([place] Cancer Society and U.S. Multi-Society Task Force). Cologuard performance data in a 10,000 patient pivotal study using colonoscopy as the reference method can be accessed at the following location: www.Phybridge/results. Additional description of the Cologuard test process, warnings and precautions can be found at www.[employer].com. Stool specimen (specimen) (Rectum) 07/16/2024 9:52 AM CDT 07/17/2024 1:15 PM CDT Vianca HURLEY URINE Final Resu lt [facility] (CLIA #:[id number]) [place] [address], * XR DXA BONE DENSITY 2 SITES AXIAL (07/03/2024 1:47 PM CDT) Anatomical Region Laterality Modality Spine, HIPS, HIPL, HIPR Other Impressions 07/05/2024 7:47 AM CDT Osteopenia. RECOMMENDATIONS: The National Osteoporosis Foundation recommends pharmacologic treatment for patients with T-scores of -2.5 or less, patients with prior history of fragility fractures, or patients with 10-year probability of greater than 3% at hips or greater than 20% of suffering major osteoporotic fractures. Recommend continued optimization of calcium and vitamin D intake through dietary means and/or supplementation and regular exercise. Misael Hunter M.D. Body/Diagnostic Radiologist [facility] [email or web address]/[email or web address] / Narrative 07/05/2024 7:47 AM CDT For Patients: Results are automatically released to your [employer] [facility]) account once available, in compliance with federal regulations. This means that you may see your results before your provider has had a chance to review them. Please allow 2-3 business days for your provider to comment on the results. XR DXA Bone Mineral Density (BMD) EXAM LOCATION: [facility] [place] [id number] PATIENT NAME: Kendal Villarreal DATE OF : 1955 EXAM DATE: 07/03/2024 REQUESTING PROVIDER: Vianca Thurman PA GENDER AT : female HEIGHT: 5 feet 8.5 inches WEIGHT: 400 pounds MENOPAUSAL STATUS: Postmenopausal RACE/ETHNICITY: White RISK FACTORS: Diabetes Type 1, Smoking (prior), and White Race CURRENT MEDICATION FOR BONE LOSS: NONE INDICATION: Screening for osteoporosis and Post-Menopause COMPARISON DATE(S): None DXA scans are compared to prior studies for a patient only when the two (or more) studies were performed on the same scanner. It is not possible to compare data generated on one scanner to data from another because there are not standards in DXA equipment. This applies even if the two scanners are made by the same color matcher. PROCEDURE: Dual-energy x-ray absorptiometry performed with routine technique. Reporting is completed in the form of a T-score. The T-score represents the standard deviation from peak bone mass based on young healthy adult. A Z-score is used for diagnosis in premenopausal women, and for men under the age of 50. FINDINGS: RESULT LUMBAR SPINE L1 - L4 BMD: 1.229 g/cm2 T-Score: + 1.7 Z-Score: + 3.6 RESULTS FEMUR Left femoral neck BMD: 0.719 g/cm2 T-Score: - 1.2 Z-Score: + 0.5 Left total hip BMD: 0.979 g/cm2 T-Score: + 0.3 Z-Score: + 1.7 Right femoral neck BMD: 0.673 g/cm2 T-Score: - 1.6 Z-Score: + 0.1 Right total hip BMD: 0.977 g/cm2 T-Score: + 0.3 Z-Score: + 1.7 WHO criteria: Normal: T-score at or above -1 SD Osteopenia: T-score between -1.1 and -2.4 SD Osteoporosis: T-score at or below -2.5 SD LEFT: FRAX RISK CALCULATION (USED FOR OSTEOPENIA ONLY): 10-year probability of major osteoporotic fracture: 7.8%. 10-year probability of hip fracture: 0.7%. RIGHT: FRAX RISK CALCULATION (USED FOR OSTEOPENIA ONLY): 10-year probability of major osteoporotic fracture: 8.4%. 10-year probability of hip fracture: 1.0%. us Vianca HURLEY DEXA Final Resu lt * LIPID PANEL W REFLEX MEASURED LDL (03/07/2024 7:00 AM CDT) [facility] CHOLESTEROL,TOTAL 173 100 - 199 mg/dL 03/07/2024 3:26 PM CDT [facility] Comment: Cholesterol, Total Reference Ranges Desirable <200 mg/dL Borderline 200-239 mg/dL High >=240 mg/dL TRIGLYCERIDES 137 <150 mg/dL 03/07/2024 3:26 PM CDT [facility] HDL CHOLESTEROL 50 >40 mg/dL 3:26 PM CDT [facility] NON-HDL CHOLESTEROL 123 <145 mg/dl 03/07/2024 3:26 PM CDT [facility] CHOL/HDL RATIO 3.46 <4.50 03/07/2024 3:26 PM CDT [facility] LDL CHOLESTEROL 96 <=130 mg/dL 03/07/2024 3:26 PM CDT [facility] VLDL CHOLESTEROL 27 <=30 mg/dL 03/07/2024 3:26 PM CDT [facility] PROVIDER ORDERED STATUS RANDOM 03/07/2024 3:26 PM CDT [facility] Blood BLOOD SPECIMEN / Unknown Venipuncture / Unknown 03/07/2024 7:00 AM CDT 03/07/2024 7:02 AM CDT Ruthy Stewart DO CHEMISTRY Final Result [facility] [address] [place] [address], [place] * XR MAMMO JOSE BILAT SCREEN (08/16/2023 8:23 AM CDT) Anatomical Region Laterality Modality BREASTS, Breast Left, Breast Right Bilateral Mammography Impressions 08/16/2023 4:05 PM CDT There is no radiographic evidence for malignancy. Recommend annual mammograms. MAMMOGRAM ASSESSMENT: ACR 1 Negative PATIENTS: You will also receive a letter with your examination results in an easy to read format. If you have questions about your results, please contact your referring provider. Narrative 08/16/2023 4:05 PM CDT For Patients: As a result of the Century Cures Act, medical imaging exams and procedure reports are released immediately into your electronic medical record. You may view this report before your referring provider. If you have questions, please contact your health care provider. XR MAMMO JOSE BILAT SCREEN [[id number]] CLINICAL HISTORY: This is an asymptomatic 68 y.o. patient. INDICATION FOR EXAM: Mammogram Screening. TECHNIQUE: CC & MLO views were obtained. This study was evaluated with the assistance of Computer-Aided Detection. Breast Tomosynthesis was used in interpretation. COMPARISON FILM: Yes 06/08/22 [facility] 04/27/21 Free & Clear FINDINGS: The breasts are almost entirely fatty. There are no dominant masses, suspicious micro calcifications or areas of architectural distortion. Ruthy Shanem DO MAMMO Final Result from Last 3 Months or Most Recently Relevant to Health Maintenance Insurance [place] BLUE MR PB ONLY MEDICARE PART B HB ONLY MEDICARE PART A HB ONLY [employer] [place] [place] BLUE HB ONLY [facility] Advance Directives * Full Code (Latest Code Status on File) Date Activated Date Inactivated Comments 12/02/2015 10:45 AM 12/03/2015 12:36 PM * Full Code Date Activated Date Inactivated Comments 01/24/2015 2:28 PM 01/24/2015 7:15 PM * Full Code Date Activated Date Inactivated Comments 04/11/2014 1:27 PM 04/11/2014 5:39 PM * Full Code Date Activated Date Inactivated Comments 04/11/2014 3:10 AM 04/11/2014 11:42 AM * Full Code Date Activated Date Inactivated Comments 08/09/2013 6:00 AM 08/09/2013 7:22 AM Care Teams Biometric[employer] Head Relationship Specialty Start Date End Date Vianca Thurman PA [address] [place] [address] PCP - General Physician Knitting Machine Operator 04/24/24 Laurie Alicea MBBS [address] [place] [address] Nephrology 08/22/24 [place] [address] [place] [address] Rheumatology 10/23/24
--- OUTSIDE RECORDS SUMMARY | 2025-01-18 14:07 | XMS_ITS | Continuity of Care Document ---
Author Organization [facility] Address [address] [place] [address] Assessment No assessment recorded. Plan of Treatment Reminders Order Date Submit [...] Recorded Time Somatic dysfunction of pelvic region 125155159 Active 2024 Roland Jeong DC [address] [place] [address], [place], [address], [facility] 5 10:36:51 Neck pain 74609743 Active 2024 [place], [place] [address], [place], [address], [facility] 5 16:41:45 Cervical segmental dysfunction 020159384 Active 2024 [place], [place] [address], [place], [address], [facility] 5 16:41:45 Lumbar segmental dysfunction 995855403 Active 2024 [place], [place] [address], [place], [address], [facility] 5 16:41:45 Thoracic segmental dysfunction 209099141 Active 2024 Tani Rubalcava [place] [address], [place], [address], [facility] 16:41:45 Lesion of lumbar spine 418952274 Active 2024 Tani Rubalcava [place] [address], [place], [address], [facility] 16:41:45 Problem Notes None recorded. Procedures Surgical History Date Name Laterality Status Provider Name and Address Organization Details Recorded Time 59121: Spinal manipulation , 3 to 4 regions completed Roland Jeong DC [address], [place], [address], [facility] 12/20/2024 16:58:33 [address]250: Spinal manipulation , 3 to 4 regions completed Roland Jeong [address], [place], [address], [facility] 12/18/2024 10:36:34 5 [address]: Spinal manipulation , 3 to 4 regions completed Tani Rubalcava [place] [address], [place], [address], [facility] 10/25/2024 16:42:10 Imaging Results None recorded. Procedure [...] SNOMED-CT Code Diagnosis ICD10 Code Diagnosis Note [id number] Roland Jeong DC [facility] [address] [place] [address] 12/18/2024 09:57:38 12/18/2024 10:48:22 Cervical segmental dysfunction 505596554 M99.01 Neck pain 05259910 M54.2 Thoracic s egmental dysfunction 075460663 M99.02 Somatic dy sfunction of pelvic region 923919698 M99.05 [id number] Roland Jeong DC [facility] [address] [place] [address] 12/20/2024 15:46:37 12/20/2024 17:31:38 Cervical segmental dysfunction 390657354 M99.01 Thoracic s egmental dysfunction 402809767 M99.02 Neck pain 46907565 M54.2 Somatic dy sfunction of pelvic region 901106872 M99.05 Health Concerns Section Related Observation LastModified by Organization Detai ls LastModified Time None Recorded Concern Status LastModified by Organization Details LastModified Time None Recorded Payers Encounter Date Sequence Insurance Name Policy Number Policy Serrano Covered Member ID Serrano Member ID Guarantor Name 12/20/2024 1 [place] [email or web address] Kendal Villarreal [id number] Kendal Villarreal 12/20/2024 2 [place] [id number] Kendal Villarreal [id number] Kendal Villarreal Notes Date Note Type Note Provider Name and Address Organization Details Recorded Time 12/20/2024 text/html HPI - Cervical SpineReported bypatient.Location: left Quality:aching Severity:moderate Duration:2 weeks Timing:gradual Alleviating Factors:ice Aggravating Factors:sitting Associated Symptoms:no numbness/tingling Roland Jeong DC [address], [place], [address], [facility] [place] - [facility] 12/20/2024 17:14:24 OBGyn Episode No OBEpisode recorded.
--- NOTE | 2025-01-18 14:26 | ED.GENADULT ---
HPI - General Adult General Date Seen: 01/18/25 Chief complaint: Arrhythmia/Palpitations Stated complaint: Potential A-fib Time Seen by Provider: 01/18/25 14:16 History of Present Illness HPI narrative: Patient is a 61-year-old woman with longstanding history of atrial fibrillation, status post ablation a couple of times. Seen here about a year ago with some palpitations, workup was normal at that time. Has been on Eliquis and continues that. Today felt like she was having some palpitations, she says that she turned and felt near syncopal. She feels back to normal now, no chest pain, shortness of breath. No recent illness or injuries although she had a little nonbloody diarrhea earlier today. No fainting. Related Data Home Medications ?Medication ?Instructions ?Recorded ?Confirmed apixaban 5 mg tablet (Eliquis) 5 mg PO BID 10/07/22 05/18/24 blood sugar diagnostic (Contour #10 ea 10/07/22 04/21/23 Next Test Strips) lisinopril 20 mg tablet 40 mg PO DAILY 10/07/22 05/18/24 magnesium citrate 100 mg tablet 500 mg PO QDAY 10/07/22 05/18/24 metoprolol tartrate 25 mg tablet 25 mg PO BID 10/07/22 05/18/24 pravastatin 40 mg tablet 40 mg PO .hs 10/07/22 05/18/24 propafenone 150 mg tablet 150 mg PO BID 10/07/22 05/18/24 insulin glargine U-300 conc 300 20 unit subcut HS 04/21/23 05/18/24 unit/mL (1.5 mL) subcutaneous pen (Toujeo SoloStar U-300 Insulin) dulaglutide 1.5 mg/0.5 mL 1.5 mg subcut 05/18/24 subcutaneous pen injector ([facility]) Previous Rx's ?Medication ?Instructions ?Recorded pantoprazole 40 mg tablet,delayed 40 mg PO DAILY #14 tabs 05/18/24 release (Protonix) Allergies Allergy/AdvReac Type Severity Reaction Status Date / Time glipizide Allergy Intermediate Abdominal Verified 01/18/25 14:08 Pain latex Allergy Intermediate Rash Verified 01/18/25 14:08 metformin Allergy Intermediate Abdominal Verified 01/18/25 14:08 Pain Penicillins Allergy Intermediate Hives Verified 01/18/25 14:08 Sulfa (Sulfonamide Allergy Intermediate Rash Verified 01/18/25 14:08 Antibiotics) Review of Systems Status of ROS: Reports: 10 or more systems reviewed and unremarkable except as noted in History and below [facility] Medical History Atrial fibrillation ?I48.91 - Unspecified atrial fibrillation (ICD-10) Cellulitis ?L03.90 - Cellulitis, unspecified (ICD-10) URI (upper respiratory infection) ?J06.9 - Acute upper respiratory infection, unspecified (ICD-10) Sore throat ?J02.9 - Acute pharyngitis, unspecified (ICD-10) Social History Smoking Status: Never smoker Do you use any of these nicotine containing products: None Second hand tobacco smoke exposure: No How often do you have a drink containing alcohol: never How often do you have six or more drinks on one occasion: Never AUDIT-C Alcohol total score: 0 Non-prescribed substance use: denies use service: No Exam Narrative: Exam Narrative: Vital signs reviewed In general, alert, nontoxic Head: Normocephalic, atraumatic. Eyes: Sclera clear. Pupils equal and reactive. ENT: Mucous membranes moist. Neck: Supple without adenopathy. Heart: Regular rate and rhythm without murmur. Lungs: Clear. No increased work of breathing, crackles or wheezes. Abdomen: Soft, nontender to palpation. She is overweight, exam therefore limited. Extremities: Well perfused, pulses intact. Some edema noted bilaterally, no calf tenderness. Neurologic: Alert, conversant. Speech fluent, face symmetric. Moves all extremities equally. Skin: Warm, dry well perfused. Affect: Normal. Const: Vital Signs, click to edit/add: Vital Signs - 24 hr 01/18/25 14:09 01/18/25 14:23 01/18/25 14:37 Temperature 98.2 F Pulse Rate 70 Pulse Rate [Pulse Oximeter] 76 Respiratory Rate 22 15 Blood Pressure Blood Pressure [Le ft Forearm] 179/79 H Pulse Oximetry 99 96 99 Oxygen Delivery Me thod Room Air Room Air 01/18/25 14:45 01/18/25 15:00 01/18/25 15:15 Temperature Pulse Rate 69 72 70 Pulse Rate [Pulse Oximeter] Respiratory Rate 14 17 13 Blood Pressure 151/75 H Blood Pressure [Le ft Forearm] Pulse Oximetry 98 98 99 Oxygen Delivery Me thod Room Air Course Course ED Course: Patient is very pleasant and well-appearing, an EKG on arrival shows a sinus rhythm with a first-degree AV block, ventricular rate of 68. I have not seen anything here that looks suggestive of atrial fibrillation although certainly possible that she could have had a short period of atrial fibrillation and converted. Given that she is already anticoagulated, I do not think there is anything else to do as far as that goes today, but we will check some labs and make sure that there are no electrolyte abnormalities, anemia, etcetera that might predispose to recurrent atrial fibrillation. Labs are all reviewed and are normal. She is maintained on the monitor, did not have any ectopy or arrhythmias. She feels well at this time and is comfortable with discharge home. Reviewed reasons to return such as fainting, significant shortness of breath or chest pain or other worsening symptoms. Otherwise, for continued concerns, palpitations or lightheadedness, see primary care. Vital Signs Vital signs: Initial Vital Signs Temperature 98.2 F 01/18/25 14:09 Temperature Source Temporal Artery Scan 01/18/25 14:09 Pulse Rate 76 01/18/25 14:09 Respiratory Rate 22 01/18/25 14:09 Blood Pressure 179/79 H 01/18/25 14:09 Blood Pressure Mean 112 H 01/18/25 14:09 Blood Pressure Position Supine 01/18/25 14:09 Pulse Oximetry 99 01/18/25 14:09 Oxygen Delivery Method Room Air 01/18/25 14:09 Vital Signs Temperature 98.2 F 01/18/25 14:09 Pulse Rate 76 01/18/25 14:09 Respiratory Rate 22 01/18/25 14:09 Blood Pressure 179/79 H 01/18/25 14:09 Pulse Oximetry 99 01/18/25 14:09 Oxygen Delivery Method Room Air 01/18/25 14:09 Temperature 98.2 F 01/18/25 14:09 Pulse Rate 70 01/18/25 15:15 Respiratory Rate 13 01/18/25 15:15 Blood Pressure 151/75 H 01/18/25 14:45 Pulse Oximetry 99 01/18/25 15:15 Oxygen Delivery Method Room Air 01/18/25 15:15 Medical Decision Making Lab Data Lab results reviewed: Yes I reviewed the patient's lab results Labs: Lab Results 01/18/25 01/18/25 Range/Units 14:23 14:38 WBC 7.21 (4.50-11.00) K/uL RBC 4.58 (4.00-5.20) m/uL Hgb 13.3 (12.0-16.0) gm/dL Hct 40.9 (33.0-51.0) % MCV 89 (80-100) fL MCH 29 (26-34) pg MCHC 33 (32-36) gm/dL RDW Coeff of Shruthi 12.9 (11.5-15.5) % Plt Count 235 (140-440) K/uL Neut % (Auto) 71.2 (42.0-72.0) % Lymph % (Auto) 18.4 L (20-44) % [place] % (Auto) 7.2 (0.0-11.0) % Eos % (Auto) 2.4 (0.0-7.0) % Baso % (Auto) 0.4 (0.0-3.0) % Neut # (Auto) 5.13 (1.7-7.0) K/uL Lymph # (Auto) 1.30 (0.90-2.90) K/uL [place] # (Auto) 0.50 (0.00-0.90) K/UL Eos # (Auto) 0.17 (0.00-0.50) K/uL Baso # (Auto) 0.03 (0.00-0.30) K/uL Abs Immat Gran (auto) 0.03 (0.00-0.30) K/uL Imm/Tot Granulo (auto) 0.4 % INR 1.17 H (0.91-1.10) Sodium 135 (135-149) mmol/L Potassium 4.7 (3.6-5.1) mmol/L Chloride 104 (96-114) mmol/L Carbon Dioxide 24 (20-32) mmol/L Anion Gap 7 (7-15) mEq/L BUN 23 (7-30) mg/dL Creatinine 0.9 (0.5-1.5) mg/dL Estimated Creat Clear 56.27 Estimated GFR 70 ml/min Glucose 134 H (60-115) mg/dL Calcium 9.7 (8.4-10.6) mg/dL Magnesium 1.8 (1.5-2.6) mg/dL Total Bilirubin 0.5 (0.1-1.5) mg/dL AST 25 (12-35) U/L ALT 21 (4-35) U/L Alkaline Phosphatase 69 (40-150) U/L NT-Pro-B Natriuret Pep 923 pg/mL Total Protein 7.1 (6.0-8.3) g/dL Albumin 4.2 (3.3-5.0) g/dL POC Troponin I 0.01 (0.01-0.04) ng/ml Discharge Plan Discharge Clinical Impression: Palpitations, History of atrial fibrillation Patient Disposition: Home, Self-Care Condition: Stable Instructions: Heart Palpitations (ED) Additional Instructions: Your evaluation here is normal, your EKG does not show any evidence of atrial fib right now. It is certainly possible that you could have had a brief episode of atrial fibrillation earlier. Your electrolytes and other blood tests are all normal. If you are having recurrent symptoms, would recommend primary care follow-up. Return any time if you have significant symptoms such as fainting, chest pain, shortness of breath, or other worsening. Prescriptions: No Action metoprolol tartrate 25 mg tablet 25 mg PO BID Patient Comments: TAKE ONE TABLET BY MOUTH TWICE DAILY lisinopril 20 mg tablet 40 mg PO DAILY Patient Comments: TAKE ONE TABLET BY MOUTH ONE TIME DAILY (DME) Contour Next Test Strips Strip See Rx Instructions .ROUTE .MEDSUPPLY Qty: 10 Patient Comments: USE TO TEST BLOOD SUGAR ONCE DAILY. Rx Instructions: As directed pravastatin 40 mg tablet 40 mg PO .hs Patient Comments: TAKE ONE TABLET BY MOUTH ONE TIME DAILY AT BEDTIME propafenone 150 mg tablet 150 mg PO BID Patient Comments: Take 1 Tablet (150 mg) by mouth twice daily 12 hours apart. Eliquis 5 mg tablet 5 mg PO BID Patient Comments: TAKE ONE TABLET BY MOUTH TWICE DAILY magnesium citrate 100 mg tablet 500 mg PO QDAY insulin glargine U-300 conc [Toujeo SoloStar U-300 Insulin] 300 unit/mL (1.5 mL) insulin pen 20 unit subcut HS Trulicity 1.5 mg/0.5 mL pen injector 1.5 mg subcut pantoprazole [Protonix] 40 mg tablet,delayed release (DR/EC) 40 mg PO DAILY Qty: 14 0RF Follow Up/Referrals: Vianca Thurman PA-C [Primary Care Provider] - Stand Alone Forms: [employer] Info Instructions
[2025-01-18 14:50] LABS: Troponin, Point-of-Care* 0.01 ng/ml (0.01-0.04)
[2025-01-18 14:56] LABS: Basophils Absolute Auto 0.03 K/uL (0.00-0.30); Basophils Percent Auto 0.4 % (0.0-3.0); Eosinophils Absolute Auto 0.17 K/uL (0.00-0.50); Eosinophils Percent Auto 2.4 % (0.0-7.0); Hematocrit 40.9 % (33.0-51.0); Hemoglobin* 13.3 gm/dL (12.0-16.0); Immature Granulocytes Abs Auto 0.03 K/uL (0.00-0.30); Immature Granulocytes Pct Auto 0.4 %; Lymphocytes Percent Auto 18.4 % (20-44); Mean Corpuscular HGB Conc 33 gm/dL (32-36); Mean Corpuscular Hemoglobin 29 pg (26-34); Mean Corpuscular Volume 89 fL (80-100); Monocytes Percent Auto 7.2 % (0.0-11.0); Neutrophils Absolute Auto 5.13 K/uL (1.7-7.0); Neutrophils Percent Auto 71.2 % (42.0-72.0); Platelet Count* 235 K/uL (140-440); RDW Coefficient of Variation % 12.9 % (11.5-15.5); Red Blood Count 4.58 m/uL (4.00-5.20); White Blood Count* 7.21 K/uL (4.50-11.00)
[2025-01-18 15:01] LABS: Slide Review Reflex No
--- OUTSIDE RECORDS SUMMARY | 2025-01-18 15:02 | XMS_ITS | Continuity of Care Document ---
Author Organization [facility] Address [address] [facility] [address] [place] [address] Assessment No assessment recorded. Plan of Treatment [...] Recorded Time Somatic dysfunction of pelvic region 809266677 Active 2024 Roland Jeong DC [address] [place] [address], [facility] [place], [address], [facility] 5 10:36:51 Neck pain 37502845 Active 2024 [place], [place] [address] [facility] [address] [facility] [address], [facility] [place], [address], [facility] 5 16:41:45 Cervical segmental dysfunction 346584880 Active 2024 [place], [place] [address] [facility], [facility] [place], [address], [facility] 5 16:41:45 Lumbar segmental dysfunction 824790463 Active 2024 [place], [place] [address] [facility], [place], [address], [facility] 5 16:41:45 Thoracic segmental dysfunction 207541924 Active 2024 Tani Rubalcava [place] [address] [facility], [place], [address], [facility] 16:41:45 Lesion of lumbar spine 513590600 Active 2024 Tani Rubalcava [place] [address] [facility], [place], [address], [facility] 16:41:45 Problem Notes None recorded. Procedures Surgical History Date Name Laterality Status Provider Name and Address Organization Details Recorded Time 37249: Spinal manipulation , 3 to 4 regions completed Roland Jeong DC [address] [facility], [place], [address], [facility] 12/20/2024 16:58:33 [address]2934: Spinal manipulation , 3 to 4 regions completed Roland Jeong [address], [place], [address], [facility] 12/18/2024 10:36:34 5 20858: Spinal manipulation , 3 to 4 regions completed Tani Rubalcava [place] [address] [facility], [place], [address], [facility] 10/25/2024 16:42:10 Imaging Results None recorded. [...] SNOMED-CT Code Diagnosis ICD10 Code Diagnosis Note [id number] Roland Jeong DC [facility] [address] [facility] [address] [place] [address] 12/18/2024 09:57:38 12/18/2024 10:48:22 Cervical segmental dysfunction 545845033 M99.01 Neck pain 02411853 M54.2 Thoracic s egmental dysfunction 118305164 M99.02 Somatic dy sfunction of pelvic region 089698973 M99.05 Health Concerns Section Related Observation LastModified by Organization Detai ls LastModified Time None Recorded Concern Status LastModified by Organization Details LastModified Time None Recorded Payers Encounter Date Sequence Insurance Name Policy Number Policy Serrano Covered Member ID Serrano Member ID Guarantor Name 12/18/2024 1 [place] [employer] Kendal Villarreal [id number] Kendal Villarreal 12/18/2024 2 [facility] [id number] Kendal Villarreal [id number] Kendal Villarreal Notes Date Note Type Note Provider Name and Address Organization Details Recorded Time 12/18/2024 text/html HPI - Cervical SpineReported bypatient.Location: left Quality:aching Severity:moderate Duration:2 weeks Timing:gradual Alleviating Factors:ice Aggravating Factors:sitting Associated Symptoms:no numbness/tingling Roland Jeong DC [address] [facility], [place], [address], [facility] - [facility] 12/18/2024 10:37:07 OBGyn Episode No OBEpisode recorded.
--- OUTSIDE RECORDS SUMMARY | 2025-01-18 15:02 | XMS_ITS | Clinical Summary ---
Author Organization [facility] Address [address] [place] [address] Care Team Providers Care Renderer Name Role Phone Vianca Thurman Primary Care Provider +- [phone] Laurie Alicea Unavailable Prasad Castro MD Unavailable [phone] Allergies Active Allergy Reactions Criticality Noted Date [...] 6 mL 3 09/25/20 24 2:16 PM DATA CONVERSION ANALYST 024 Active pen needle (BD Aparna 2nd [...] Department Care Team Description 12/21/2024 10:40 AM DATA CONVERSION ANALYST Office Visit [facility] [address] [place] [address] Alfred Griffin MD Consult (pulm hypertension found incidentally on imaging; referred to rheum for positive MIRYAM; rheum heard rattling in lungs and recommended work up with pulm; denies dyspnea and respiratory systems, post nasal drainage but no productive cough; had PFTS in August) 12/21/2024 Travel 12/17/2024 Travel 12/17/[address] [address] Vianca Thurman PA Refill Request (Clotrimazole-betameth asone) 12/12/[address] [phone] Vianca Thurman PA Prior Authorization (tirzepatide (Mounjaro) 7.5 mg/0.5 mL pen (Approved 11/12/2024-12/12/2025) ) 12/11/[address] [phone] Ruthy Stewart DO Refill Request (Bd Aparna [...] Health Brother 5 Good Health Daughter 2 [place]. Good Health Daughter 3 [place]. Blood Disease Father Leukemia. Dece ased. Cancer-breast Maternal Aunt Other Mother Alive at age 91 in 2014. [facility]. Dementia./Possible Parkinson's Good Health Sister 4 Good Health Sister 5 Good Health Son 2 [place]. 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 Not on file Not on file Not on file Obstetrics History Para Term AB IAB SAB Ectopic Multiple Livin g Live Births 2 2 2 2 Date Outcome GA Total Labor Labor/2nd/3rd Weight Sex Type Anes PTL Shirley A1 A5 Name Clin Term Term Last Filed Vital Signs Vital Sign Reading Time Taken Comments Blood Pressure 118/72 12/21/2024 10:21 AM DATA CONVERSION ANALYST Pulse 72 12/21/2024 10:21 AM DATA CONVERSION ANALYST Temperature 36.6 C (97.9 F) 05/03/2022 1:44 PM CDT Respiratory Rate 16 08/13/2022 8:55 AM CDT Oxygen Saturation 98% 12/21/2024 10:21 AM DATA CONVERSION ANALYST Inhaled Oxygen Concentration - - Weight 170.1 kg (375 lb) 12/21/2024 10:21 AM DATA CONVERSION ANALYST Height 175.3 cm (5' 9) 12/21/2024 10:21 AM DATA CONVERSION ANALYST Body Mass Index 55.38 12/21/2024 10:21 AM DATA CONVERSION ANALYST Plan of Treatment Upcoming Encounters Date Type Department Care Team (Late st Contact Info) Description 02/25/2025 1:30 PM CDT Orders Only [facility] [address] [place] [place] [address] [place] 03/13/2025 10:15 AM CDT Orders Only [facility] [address] [place] [address] [place] 03/18/2025 9:30 AM CDT Office Visit [facility] [address] [place] [address] [place] [address] [place] [address] 03/19/2025 10:00 AM CDT Ancillary Procedure [facility] [address] [place] [address] 03/19/2025 11:30 AM CDT Office Visit [facility] [address] [facility] [address] [place] [address] Orion Stapleton MD [address] [place] [address] 03/20/2025 10:00 AM CDT Office Visit [facility] [address] [place] [address] Laurie Alicea MBBS [address] [place] [address] 04/04/2025 1:30 PM CDT Office Visit [facility] [address] [place] [address] Kyle Tboias MD [address] [place] [address] Health Maintenance Due Date Last Done Comments [...] 09/17/2024, Additional history exists Fecal testing sDNA-FIT ([place] guard) for age 45-75 07/16/2027 07/16/2024 Tetanus [...] SPIROMETRY WO BRONCHODILATOR Routine 12/21/2024 10:40 AM DATA CONVERSION ANALYST MIRYAM positive Pulmonary hypertension (HC) Abnormal PFTs SCAN-PULMONARY FUNCTION TEST 12/21/2024 12:00 AM DATA CONVERSION ANALYST HEMOGLOBIN A1C Routine 10/24/2024 1:52 PM DATA CONVERSION ANALYST Diabetes mellitus without complication (HC) ANTI HCV [...] AMB SPIROMETRY WO BRONCHODILATOR (12/21/2024 10:40 AM DATA CONVERSION ANALYST) Narrative Alfred Griffin MD - 12/21/2024 10:40 AM DATA CONVERSION ANALYST Alfred Griffin MD 12/21/2024 11:04 AM Pulmonary Function Test Interpretation [facility] Ordering Provider: Prasad Castro* Reason for Study: (R94.2) Abnormal PFTs (primary encounter diagnosis) (R76.8) MIRYAM positive (I27.20) Pulmonary hypertension (HC) Date of study: 12/21/2024 SPIROMETRY Normal. Alfred Griffin MD Interventional Pulmonology [facility] Pager: [phone] us Alfred Griffin MD NURSING ORD Final Result * SCAN-PULMONARY FUNCTION TEST (12/21/2024 12:00 AM DATA CONVERSION ANALYST) us Scanner OTHER Final Result * (ABNORMAL) HEMOGLOBIN A1C (10/24/2024 1:52 PM DATA CONVERSION ANALYST) HEMOGLOBIN A1C 7.3(H) <5.7 % of total [...] BLOOD SPECIMEN / Unknown 10/24/2024 1:52 PM DATA CONVERSION ANALYST 10/24/2024 1:52 PM DATA CONVERSION ANALYST Vianca HURLEY CHEMISTRY Final Resu lt Performing Organization Address [facility] Co de Phone Number [facility] [address] [place] [address], [facility] [address] [place] [address] * ANTI HCV (08/15/2024 11:23 AM CDT) Pathologist [facility] HEPATITIS C ANTIBODY NON-REACTI VE NON-REACT PRINCE [facility] Comment: HCV antibody was non-reactive. There is no laboratory evidence of HCV infection. In most cases, no further action is required. However, if recent HCV exposure is suspected, a test for HCV RNA (test code 24200) is suggested. For additional information please refer to http://education.MoBeam/faq/DKC60q7 (This link is being provided for informational/ educational purposes only.) Blood BLOOD SPECIMEN / Unknown 08/15/2024 11:23 AM CDT 08/15/2024 11:23 AM CDT Prasad Castro MD SEND OUTS Fin al Result Performing Organization Address [facility] Co de Phone Number [facility] [address] [place] [address], [facility] [address] [place] [address] * SDNA-FIT EXTERNAL (COLOGUARD) (07/16/2024 9:52 AM CDT) Pathologist [facility] NONINV COLON CA DNA+OCC BLD SCRN STL-IMP Negative Negative 07/20/2024 10:27 AM CDT [facility] (CLIA #:[id number]) Comment: NEGATIVE TEST RESULT. A negative Cologuard [...] Hirsch et al, N Engl J Med 2014;370(14):6638-0000) The normal value (reference range) for this assay is negative. COLOGUARD RE-SCREENING RECOMMENDATION: Periodic colorectal cancer screening is an important part of preventive healthcare for asymptomatic individuals at average risk for colorectal cancer. Following a negative Cologuard result, the [place] [employer] and U.S. Multi-Society Task Force screening guidelines recommend a Cologuard re-screening interval of 3 years. References: [place] [employer] Guideline for Colorectal Cancer Screening: https://www.cancer.org/cancer/ymtoy-siimwh-fnnzgq/ytmgzvqzi-oqxlussvb-unbfybi/ac s-rec ommendations.html.; Pato BUENROSTRO, Arlene SOLORZANO, Chikis AlvarezK, Colorectal Cancer Screening: Recommendations for Physicians and Patients from the U.S. Multi-Society Task Force on Colorectal Cancer Screening , Am J Gastroenterology 2017; 112:7731-7957. TEST DESCRIPTION: Composite algorithmic analysis of stool [...] Hirsch et al, N Engl J Med 2014;370(14):5480-9545.) Cologuard may produce a false negative or false positive result (no colorectal cancer or precancerous polyp present at colonoscopy follow up). A negative Cologuard test result does not guarantee the absence of CRC or advanced adenoma (pre-cancer). The current Cologuard screening interval is every 3 years. ([place] [employer] and U.S. Multi-Society Task Force). Cologuard performance data in a 10,000 patient pivotal study using colonoscopy as the reference method can be accessed at the following location: www.[employer]y Crowd[employer]der/results. Additional description of the Cologuard test process, warnings and precautions can be found at www.[employer] Mediard.com. Stool specimen (specimen) (Rectum) 07/16/2024 9:52 AM CDT 07/17/2024 1:15 PM CDT Vianca HURLEY URINE Final Resu lt [facility] (CLIA #:[id number]) [place] [address], * XR DXA BONE DENSITY 2 SITES [...] Patients: Results are automatically released to your [employer] (inexio) account once available, in compliance with federal regulations. This means that you may see your results before your provider has had a chance to review them. Please allow 2-3 business days for your provider to comment on the results. XR DXA Bone Mineral Density (BMD) EXAM LOCATION: [facility] [place] [id number] PATIENT NAME: Kendal Villarreal DATE OF : [...] two scanners are made by the same clinical associate. PROCEDURE: Dual-energy x-ray absorptiometry performed with routine [...] REFLEX MEASURED LDL (03/07/2024 7:00 AM CDT) [facility] CHOLESTEROL,TOTAL 173 100 - 199 mg/dL 03/07/2024 3:26 PM CDT [facility] Comment: Cholesterol, Total Reference Ranges Desirable <200 mg/dL Borderline 200-239 mg/dL High >=240 mg/dL TRIGLYCERIDES 137 <150 mg/dL 03/07/2024 3:26 PM CDT [facility] HDL CHOLESTEROL 50 >40 mg/dL 3:26 PM CDT [facility] NON-HDL CHOLESTEROL 123 <145 mg/dl 03/07/2024 3:26 PM CDT [facility] CHOL/HDL RATIO 3.46 <4.50 03/07/2024 3:26 PM CDT [facility] LDL CHOLESTEROL 96 <=130 mg/dL 03/07/2024 3:26 PM CDT [facility] VLDL CHOLESTEROL 27 <=30 mg/dL 03/07/2024 3:26 PM CDT [facility] PROVIDER ORDERED STATUS RANDOM 03/07/2024 3:26 PM CDT [facility] Blood BLOOD SPECIMEN / Unknown Venipuncture / Unknown 03/07/2024 7:00 AM CDT 03/07/2024 7:02 AM CDT Ruthy Stewart DO CHEMISTRY Final Result [facility] [address] [place] [address], [place] * XR MAMMO JOSE BILAT SCREEN [...] care provider. XR MAMMO JOSE BILAT SCREEN [[id number]] CLINICAL HISTORY: This is an asymptomatic 68 y.o. patient. INDICATION FOR EXAM: Mammogram Screening. TECHNIQUE: CC & MLO views were obtained. This study was evaluated with the assistance of Computer-Aided Detection. Breast Tomosynthesis was used in interpretation. COMPARISON FILM: Yes 06/08/22 [facility] 04/27/21 [facility] FINDINGS: The breasts are almost entirely fatty. There are no dominant masses, suspicious micro calcifications or areas of architectural distortion. Ruthy Shanem DO MAMMO Final Result from Last 3 Months or Most Recently Relevant to Health Maintenance Insurance [employer] [place] BLUE MR PB ONLY MEDICARE PART B HB ONLY MEDICARE PART A HB ONLY [employer] [place] [employer] BLUE HB ONLY [facility] Advance Directives * Full Code (Latest Code [...] 6:00 AM 08/09/2013 7:22 AM Care Teams Renderer Relationship Specialty Start Date End Date Vianca Thurman PA [address] [place] [address] PCP - General Physician Edge Setter 04/24/24 Laurie Alicea MBBS [address] [place] [address] Nephrology 08/22/24 [place] [address] [place] [address] Rheumatology 10/23/24
[2025-01-18 15:15] LABS: INR 1.17 (0.91-1.10); Prothrombin Time 15.8 Seconds
[2025-01-18 15:19] LABS: Albumin* 4.2 g/dL (3.3-5.0); Chloride* 104 mmol/L (96-114); Potassium* 4.7 mmol/L (3.6-5.1); Sodium* 135 mmol/L (135-149)
[2025-01-18 15:22] LABS: Alanine Aminotransferase* 21 U/L (4-35); Alkaline Phosphatase* 69 U/L (40-150); Anion Gap 7 mEq/L (7-15); Aspartate Amino Transferase* 25 U/L (12-35); Bilirubin Total* 0.5 mg/dL (0.1-1.5); Blood Urea Nitrogen* 23 mg/dL (7-30); Calcium* 9.7 mg/dL (8.4-10.6); Carbon Dioxide* 24 mmol/L (20-32); Creatinine* 0.9 mg/dL (0.5-1.5); Est. Creatinine Clearance* 56.27; Estimated Glomerular Filt Rate 70 ml/min; Glucose* 134 mg/dL (60-115); Total Protein* 7.1 g/dL (6.0-8.3)
[2025-01-18 15:23] LABS: Magnesium* 1.8 mg/dL (1.5-2.6)
[2025-01-18 15:33] LABS: NT Pro B Type NatriureticPept* 923 pg/mL
== END 2025-01-18 15:59 | disposition home or self-care (01) ==
PROVIDERS: Emergency Provider Emergency Medicine; PCP Physician Assistant
DX: R00.2 Palpitations (principal); Z86.79 Personal history of other diseases of the circulatory system
CPT/HCPCS: 36415; 80053; 83735; 83880; 84484; 85025; 85610; 93005; 94761; 99284